=== PATIENT | female | born 1955 | race African-American/Black ===

== ENCOUNTER 2017-09-30 19:57 | Emergency (ER) | payer MEDICARE, MEDICAID ==
[~2017-09-30] VITALS: Ht 152.4 cm; Wt 78.0 kg
[~2017-09-30 19:57] MED LIST: ATENOLOL25 MG OR; BACTRIM DS1 TAB PO; ENALAPRIL20 MG OR; HYDROCHLOROT25 MG OR; NORVASC10 M1 PO; OS-CAL 500+D PO; VITAMIN B-6200 MG OR
[2017-09-30] MEDS ORDERED: ADLT ASA LOW81 MG PO (20:44)
[2017-09-30] MEDS ORDERED: [UNRECOGNIZED DRUG - OTHER] PO (20:44)
[2017-09-30] MEDS ORDERED: METFORMIN500 MG PO (20:45)
[2017-09-30] MEDS ORDERED: CITRACAL + D3 MAXIMU PO (20:45)
[2017-09-30] MEDS ORDERED: LOPRESSOR25 MG PO (20:46)
[2017-09-30] MEDS ORDERED: LISINOP/HCTZ1 TA2 PO (20:46)
[2017-09-30] MEDS ORDERED: PRAVACHOL20 MG PO (20:49)
[2017-09-30 20:50] LABS: HEMATOCRIT 39.9 % (37.0-47.0); HEMOGLOBIN 12.7 g/dl (12.0-16.0); IMMATURE GRANULOCYTES 0.2 % (0.0-5.0); MEAN CELL VOLUME 80.8 fL CALC (80.0-100.0); MEAN CORPUSCULAR HGB 25.7 pG CALC (26.0-32.0); MEAN CORPUSCULAR HGB CONC 31.8 g/L CALC (32.0-36.0); NEUT# 3.42 thou/uL (2.00-7.15); RED BLOOD COUNT 4.94 mill/uL (4.20-5.60); RED CELL DISTRI WIDTH 15.4 % (11.5-15.5)
[2017-09-30] MEDS ORDERED: LOTRISONE TOP (20:50)
[2017-09-30] MEDS ORDERED: AMLODIPINE5 MG PO (20:50)
[2017-09-30] MEDS ORDERED: ISOSORB MONO30 MG PO (20:51)
[2017-09-30] MEDS ORDERED: HYDROXYZINE HCL25 M1 PO (20:52)
[2017-09-30 20:56] LABS: ALBUMIN 4.6 g/dL (3.2-5.0); ALKALINE PHOSPHATASE 74 u/l (38-126); ANION GAP 16 (6-22 (CALC)); BILIRUBIN, TOTAL 0.4 mg/dL (0.0-1.4); BUN 14 mg/dL (8-23); BUN/CREATININE RATIO 18 (12-20 (CALC)); CARBON DIOXIDE 24 mmol/l (22-30); CHLORIDE 107 mmol/l (95-108); CREATININE 0.7 mg/dL (0.5-1.0); GFR > 60 ML/MIN (>=60 (CALC)); GFR FOR AFR.AMER. > 60 ML/MIN (>=60 (CALC)); POTASSIUM 3.8 mmol/l (3.5-5.1); SGOT/AST 22 u/l (9-36); SGPT/ALT 38 u/l (11-66); SODIUM 143 mmol/l (137-146); TOTAL PROTEIN 8.6 g/dL (6.3-8.2)
[2017-09-30 20:57] LABS: MAGNESIUM 1.9 mg/dL (1.6-2.3)
[2017-09-30 21:08] LABS: MYOGLOBIN 26 ng/mL (0 - 62)
[2017-09-30 22:01] VITALS: BP 121/73
== END 2017-09-30 22:09 | disposition home or self-care (01) ==
LOC: ED 19:57
PROVIDERS: Family Medicine
DX: R07.9 Chest pain, unspecified (principal); E11.9 Type 2 diabetes mellitus without complications; I11.9 Hypertensive heart disease without heart failure; Z79.899 Other long term (current) drug therapy